=== PATIENT | female | born 1975 | race Caucasian/White ===

== ENCOUNTER 2017-10-29 10:23 | Emergency (ER) | payer OTHER ==
[2017-10-29] VITALS (9 sets, daily range): BP systolic 86–114; BP diastolic 47–75
[~2017-10-29] VITALS: Ht 160 cm; Wt 57.6 kg
[~2017-10-29 10:23] MED LIST: ASPIR 8181 MG PO; ATORVASTATIN CA40 MG PO; BRILINTA90 MG PO; CELEXA40 MG PO; COREG6.25 MG PO; IMDUR 30 MG TAB30 M1 PO; JANUMET 50-5001 EACH PO; JANUVIA50 MG PO; LOPRESSOR 12.12.5 MG PO; NITROGLYCERIN0.4 MG SUBLING; NORCO 5-325 TA1 EAC1 PO; PERCOCET 5-3251 EACH PO; PHENERGAN 25 MG25 M1 PO; PROTONIX 20 MG20 M1 PO; RANEXA500 MG PO; ULTRAM 50MG TAB50 MG PO; VICODIN 5-5001 EACH PO; XANAX 0.5 MG0.5 M1 PO; XANAX XR1 MG PO; ZOFRAN 4 MG ORAL4 MG PO; ZOFRAN ODT4 MG PO
[2017-10-29] MEDS ORDERED: ASPIRIN325 PO (10:30)
[2017-10-29] MEDS ORDERED: LISINOPRIL2.5 MG PO (10:32)
[2017-10-29] MEDS ORDERED: BRILINTA90 MG PO (10:33)
[2017-10-29 10:43] LABS: ABSOLUTE EOSINOPHILS 0.2 thou/uL (0.0-0.7); ABSOLUTE LYMPHOCYTES 2.1 thou/uL (0.8-5.3); ABSOLUTE MONOCYTES 0.5 thou/uL (0.0-1.2); ABSOLUTE NEUTROPHILS 2.5 thou/uL (1.6-8.1); BASOPHILS 0.9 %; EOSINOPHILS 3.1 %; HEMATOCRIT 40.9 % (37.0-47.0); HEMOGLOBIN 13.8 gm/dL (12.0-15.0); LYMPHOCYTES 39.6 %; MCH 32.4 pg (26.0-34.0); MCHC 33.7 g/dL (28.0-37.0); MCV 96.4 fL (80.0-100.0); MONOCYTES 9.8 %; MPV 8.4 fl. (7.2-11.1); NUCLEATED RBCS 0 /100WBC; PLATELET COUNT* 219 thou/uL (150-400); POLYS 46.6 %; RBC 4.24 mil/uL (4.20-5.00); RDW-CV 13.6 % (10.5-14.5); WBC 5.4 thou/uL (4.0-11.0)
[2017-10-29 10:51] LABS: ANION GAP 8 mmol/L (7-16); BUN 5 mg/dL (7-18); CALCIUM 8.8 mg/dL (8.5-10.1); CHLORIDE 102 mmol/L (98-107); CO2 30 mmol/L (21-32); CREATININE 0.8 mg/dL (0.6-1.3); GLUCOSE 181 mg/dL (70-99); POTASSIUM 3.8 mmol/L (3.5-5.1); SODIUM 140 mmol/L (136-145)
[2017-10-29 10:52] LABS: APTT 25.5 Seconds (25.0-31.3); PROTIME 9.6 Seconds (9.20-11.50)
[2017-10-29 10:54] LABS: CHOLESTEROL 139 mg/dL (<200); HDL CHOLESTEROL 70 mg/dL (>40); LDL CHOLESTEROL 31 mg/dL (<100); TRIGLYCERIDE 193 mg/dL (<150); VLDL 39 mg/dL (<40)
[2017-10-29 10:55] LABS: SERUM ASSESSMENT Clear
[2017-10-29 11:10] LABS: ALBUMIN 3.8 g/dL (3.4-5.0); ALKALINE PHOSPHATASE 103 U/L (46-116); CK-MB MASS < 0.5 ng/mL (<0.5-3.6); LIPASE 89 U/L (73-393); MAGNESIUM 1.5 mg/dL (1.8-2.4); NT-PRO BRAIN NAT PEPTIDE 130 pg/mL (<300); SGOT 29 U/L (15-37); SGPT 44 U/L (30-65); TOTAL BILIRUBIN 0.5 mg/dL (<0.1-1.0); TROPONIN-I LEVEL <0.06 ng/mL (<0.06)
--- NOTE | 2017-10-29 17:59 | EKG ---
[place] [address] ELECTROCARDIOGRAM REPORT Name: ZULEYKA COSBY Room: [address]R.#: [id number] Admission: 10/29/17 Attend Phys: Blayne Weaver MD, Discharge: Date of : 77 Report #: [id number] THIS REPORT FOR: //name// [facility] ED Test Date: 2017-10-29 Test Time: 10:29:27 Pat Name: ZULEYKA COSBY Department: Room: Gender: F Zoology Technical Officer: Melony FERNANDEZ : 1975 Requested By: Wagner Gil Order Number: [id number] MD: Blayne Weaver Measurements Intervals [place] Rate: 81 P: 48 [place]: 154 QRS: 7 QRSD: 107 T: 54 QT: 393 QTc: 457 Interpretive Statements Sinus rhythm Abnormal inferior Q waves Baseline wander in lead(s) V2 Compared to ECG 04/30/2017 10:02:17 Inferior Q waves now present Q waves now present Electronically Signed On 10-29-2017 17:59:38 CDT by Blayne Weaver [email or web address] <ELECTRONICALLY SIGNED> By: Blayne Weaver MD, [facility] 10/29/17 1759 1029 1029 Blayne Weaver MD, [facility] /EPI
--- NOTE | 2017-10-30 16:51 | CARD ---
[address] [address] CARDIAC CATH REPORT Name: ZULEYKA COSBY Room: [facility] ANNIE Turner#: [id number] Admission: 10/29/17 Attend Phys: Discharge: 10/29/17 Date of : [birth year] Report #: [id number] THIS REPORT FOR: //name// APPROVED REPORT Study performed: 10/29/2017 13:15:37 Patient Details Patient Status: ED Room #: The patient is a 42 year-old female Event Personnel Blayne Weaver Chili Powder Mixer, Amber Overton RN Toll Testboard Worker, Macarena Albarado Monitor, RickyMalathi faulkner RTR Scrub Procedures Performed Art Access - R radial artery , Left Heart Catheterization and selective coronary arteriography, FFR Indication Chest pain Risk Factors Family History, Hypercholesterolemia Previous Procedures/Diagnoses Previous PCI, Previous ID Procedure Narrative The patient was brought urgently to the Cardiac Catheterization Laboratory and was prepped and draped in a sterile manner. The right wrist was infiltrated with 1% Lidocaine subcutaneous anesthesia. A Randolph 6 FR sheath was inserted into the right radial artery. Coronary angiography was performed using coronary diagnostic catheters. The right coronary system was accessed and visualized with a JR4 5fr catheter. The left coronary system was accessed and visualized with a JL 3.5 5fr catheter. Left ventricular/Aortic Valve gradient assessed via catheter pullback. The patient tolerated the procedure well and there were no complications associated with the procedure. Intraoperative Conscious Sedation Sedation start time: 13:48 Case end Time: 14:49 Fentanyl 50 mcg Versed 3 [place] [address] CARDIAC CATH REPORT Name: ZULEYKA COSBY Room: [facility]#: [id number] Admission: 10/29/17 Attend Phys: Discharge: 10/29/17 Date of : 77 Report #: [id number] Fluoro Time: 9.7 minutes Dose: DAP 90110 cGycm2 748.42 mGy Contrast Type and Amount: Visipaque 115 ml Diagnostic Cath Left Main 0% narrowing LAD Widely patent proximal LAD stent with 50% mid vessel narrowing and 40% proximal narrowing of the first diagonal branch Circumflex Widely patent proximal stent with 0% narrowing of this dominant vessel Right Coronary Small nondominant vessel with 0% narrowing IVUS Fractional Flow [place] was performed on the mid left anterior descending artery segment vessel. A 6fr XB LAD 3.5 Guide Catheter was used to engage the LCA ostium. A FFR wire was used. IVUS Findings Minimum FFR related to the mid LAD lesion was 0.89, suggesting lack of hemodynamic significance after adenosine provocation Hemodynamics The aortic pressure is 104/59 mmHg with a mean of mmHg. The left ventricular pressure is 108/5 mmHg with a mean of mmHg. The left ventricular end diastolic pressure is 14 mmHg. There was no gradient across the aortic valve upon pullback. PCI Technique Lesion The lesion stenosis prior to intervention was mid left anterior descending artery segment% with ABEL 6fr XB LAD 3.5 flow. A LCA Guide Catheter was used to engage the ostium. A FFR wire Interventional Guidewire was used to cross the lesion. BALLOON DILATION A Balloon catheter Minimum FFR related to the mid LAD lesion was 0.89, suggesting lack of hemodynamic significance after adenosine provocation was inserted and inflated up to pascual for seconds. Conclusion #1 modest coronary disease characterized by the following: [place] [address] CARDIAC CATH REPORT Name: ZULEYKA COSBY [id number] Admission: 10/29/17 Attend Phys: Discharge: 10/29/17 Date of : 77 Report #: [id number] A widely patent proximal LAD stent with 50% mid LAD narrowing and 40% ostial first diagonal narrowing, B widely patent proximal circumflex stent, this being a dominant vessel, C 0% narrowing of the nondominant right coronary artery #2 FFR obtained related to the moderate mid LAD lesion with a minimum value 0.89, suggesting lack of hemodynamic significance #3 normal left-sided hemodynamics study Recommendations Cardiac Risk Reduction Program Aggressive Medical Therapy Diagnostic Cath Approved by: Blayne Weaver MD Date/Time: 10/30/17 at 1650 hrs. <ELECTRONICALLY SIGNED> By: Blayne Weaver MD, [facility] 10/30/171650 50 1651Joisael Weaver MD, FACC /INF
== END 2017-10-29 18:00 | disposition home or self-care (01) ==
LOC: M.CL 10:23 → M.ERS 10:23 → M.TBA-CV 13:20 → M.CL 13:20
PROVIDERS: Family Medicine
DX: I25.10 Atherosclerotic heart disease of native coronary artery without angina pectoris (principal); I10 Essential (primary) hypertension; E11.9 Type 2 diabetes mellitus without complications; I25.2 Old myocardial infarction; E78.00 Pure hypercholesterolemia, unspecified; K21.9 Gastro-esophageal reflux disease without esophagitis; F32.9 Major depressive disorder, single episode, unspecified; Z90.710 Acquired absence of both cervix and uterus; Z79.82 Long term (current) use of aspirin; Z90.49 Acquired absence of other specified parts of digestive tract; Z79.899 Other long term (current) drug therapy

== ENCOUNTER 2018-11-10 22:39 | Inpatient (IN) | payer OTHER ==
[~2018-11-10] VITALS: Ht 157.5 cm; Wt 56.2 kg
[~2018-11-10 22:39] MED LIST changes: +ASPIRIN325 PO; +LISINOPRIL2.5 MG PO
[2018-11-10 22:44] VITALS: BP 97/66
[2018-11-10] MEDS ORDERED: LEVEMIR (22:51)
[2018-11-10] MEDS ORDERED: ASPIR 8181 MG (22:52)
[2018-11-10 23:01] LABS: ABSOLUTE EOSINOPHILS 0.1 thou/uL (0.0-0.7); ABSOLUTE LYMPHOCYTES 1.8 thou/uL (0.8-5.3); ABSOLUTE MONOCYTES 0.4 thou/uL (0.0-1.2); ABSOLUTE NEUTROPHILS 1.7 thou/uL (1.6-8.1); BASOPHILS 1.1 %; EOSINOPHILS 2.1 %; HEMATOCRIT 41.2 % (37.0-47.0); HEMOGLOBIN 13.9 gm/dL (12.0-15.0); LYMPHOCYTES 44.7 %; MCH 31.4 pg (26.0-34.0); MCHC 33.6 g/dL (28.0-37.0); MCV 93.4 fL (80.0-100.0); MONOCYTES 9.6 %; MPV 9.1 fl. (7.2-11.1); NUCLEATED RBCS 0 /100WBC; PLATELET COUNT* 246 thou/uL (150-400); POLYS 42.5 %; RBC 4.41 mil/uL (4.20-5.00); RDW-CV 13.1 % (10.5-14.5); WBC 4.1 thou/uL (4.0-11.0)
[2018-11-10 23:15] LABS: APTT 25.9 Seconds (25.0-31.3); PROTIME 10.1 Seconds (9.20-11.50)
[2018-11-10 23:23] LABS: ANION GAP 13 mmol/L (7-16); BUN 9 mg/dL (7-18); CALCIUM 8.7 mg/dL (8.5-10.1); CHLORIDE 89 mmol/L (98-107); CO2 25 mmol/L (21-32); CREATININE 1.1 mg/dL (0.6-1.3); SODIUM 127 mmol/L (136-145); TROPONIN-I LEVEL <0.06 ng/mL (<0.06)
[2018-11-10 23:27] LABS: ALBUMIN 3.6 g/dL (3.4-5.0); ALKALINE PHOSPHATASE 112 U/L (46-116); CK-MB MASS < 0.5 ng/mL (<0.5-3.6); LIPASE 324 U/L (73-393); MAGNESIUM 1.4 mg/dL (1.8-2.4); NT-PRO BRAIN NAT PEPTIDE 202 pg/mL (<300); SGOT 10 U/L (15-37); SGPT 20 U/L (30-65); TOTAL BILIRUBIN 0.4 mg/dL (<0.1-1.0); TOTAL PROTEIN 6.9 g/dL (6.4-8.2)
[2018-11-10 23:31] LABS: GLUCOSE 747 mg/dL (70-99)
[2018-11-11] VITALS (18 sets, daily range): BP systolic 74–106; BP diastolic 30–80
[2018-11-11] LABS: BE 0.2 mmol/L (-2 to +3); PCO2 VENOUS 48.7 mmHg (41.0-51.0)
[2018-11-11 00:01] LABS: PO2 VENOUS 26.2 mmHg (35.0-45.0)
--- NOTE | 2018-11-11 09:01 | EKG ---
[place] [address] ELECTROCARDIOGRAM REPORT Name: ZULEYKA COSBY Room: [address] ADM IN .R.#: [id number] Admission: 11/10/18 Attend Phys: Estuardo Lazcano MD Discharge: Date of : 77 Report #: [id number] THIS REPORT FOR: //name// [facility] ED Test Date: 2018-11-10 Test Time: 22:52:50 Pat Name: ZULEYKA COSBY Department: Room: [facility] Gender: F Prop Cutter: Melony KELLOGG : 1975 Requested By: Wagner Gil Order Number: [id number] MD: Jeff Ayoub Measurements Intervals [place] Rate: 91 P: 64 [place]: 169 QRS: 4 QRSD: 103 T: 82 QT: 365 QTc: 450 Interpretive Statements Sinus rhythm Probable inferior infarct, old Compared to ECG 10/29/2017 10:29:27 no change Electronically Signed On 11-11-2018 9:00:50 CDT by Jeff Ayoub [email or web address] <ELECTRONICALLY SIGNED> By: Jeff Ayoub MD, [facility] 11/11/18 0900 51 51 Jeff Ayoub MD, [facility] /EPI
--- NOTE | 2018-11-11 16:50 | CARD ---
[address] [address] CARDIAC CATH REPORT Name: ZULEYKA COSBY Room: [address] IN .R.#: [id number] Admission: 11/10/18 Attend Phys: Estuardo Lazcano MD Discharge: Date of : 77 Report #: [id number] THIS REPORT FOR: //name// ADDENDUM APPROVED REPORT Study performed: 11/11/2018 13:26:27 Patient Details Patient Status: In-Patient Room #: 205 The patient is a 43 year-old female Event Personnel Jeff Ayoub Spiral Tube Winder, Rossy Zamudio RN RN, Maykel Isaac (R) Jimi Gamboa Brad PARTY PLANNER Monitor Procedures Performed Art Access - R femoral artery* , Left Heart Catheterization Indication Chest pain Risk Factors Diabetes Previous Procedures/Diagnoses Previous PCI, Previous IA Procedure Narrative The patient was brought electively to the Cardiac Catheterization Laboratory and was prepped and draped in a sterile manner. The right femoral was infiltrated with 1% Lidocaine subcutaneous anesthesia. A ultimum 6fr sheath was inserted into the right femoral artery. Coronary angiography was performed using coronary diagnostic catheters. The right coronary system was accessed and visualized with a JR4 6fr catheter. The left coronary system was accessed and visualized with a JL4 6fr catheter. The left ventricle was accessed and visualized with a pigtail 6fr catheter. Left ventricular/Aortic Valve gradient assessed via catheter pullback. Left ventriculogram was performed in YUNG projection. Hemostasis was obtained with manual pressure following sheath removal without any complications. The patient tolerated the procedure well and there were no complications associated with the procedure. There was no hematoma. Intraoperative Conscious Sedation [address] [address] CARDIAC CATH REPORT Name: ZULEYKA COSBY Room: [address]#: [id number] Admission: 11/10/18 Attend Phys: Estuardo Lazcano MD Discharge: Date of : 77 Report #: [id number] Sedation start time: 1418 Case end Time: 1442 Fentanyl 75 mcg Versed 3 mg Fluoro Time: 1.5 minutes Dose: DAP 69276 cGycm2 308 mGy Contrast Type and Amount: Omnipaque 140 ml Coronary Angiography The patient's coronary anatomy is left dominant. Diagnostic Cath Left Main 0% stenosis LAD ostial stent had 0% restenosis Circumflex proximal stent had 0% restenosis Right Coronary 0% stenosis Left Ventriculography The left ventricular ejection fraction is estimated to be 40-45%. Left ventricular wall motion abnormalities are present. There is 1+ mitral insufficiency. mild inferior wall hypokinesis noted Hemodynamics The aortic pressure is 131/71 mmHg with a mean of 96 mmHg. The left ventricular pressure is 141/120 mmHg with a mean of mmHg. The left ventricular end diastolic pressure is 28 mmHg. There was no gradient across the aortic valve upon pullback. Pullback from the left ventricle to the aorta revealed no gradient across the aortic valve. Conclusion 1. no restenosis noted of stents in the proximal lad and circumflex 2. LVEF 40-45% Recommendations Aggressive Medical Therapy <ELECTRONICALLY SIGNED> By: Jeff Ayoub MD, [facility] 11/11/181648 48 48Davinancy Ayoub MD, FACC /INF
[2018-11-12] VITALS: BP 96/50
[2018-11-12 04:00] VITALS: BP 123/69
[2018-11-12 08:00] VITALS: BP 102/56
[2018-11-12 11:13] VITALS: BP 102/56
[2018-11-12 11:46] VITALS: BP 102/56
[2018-11-12 12:00] VITALS: BP 212/76
--- NOTE | 2018-11-12 14:09 | CON ---
[address] [address] CONSULTATION Name: ZULEYKA COSBY Room: [address] IN ..#: [id number] Admission: 11/10/18 Attend Phys: Estuardo Lazcano MD Discharge: 11/12/18 Date of : 77 Report #: [id number] THIS REPORT FOR: //name// CC: Estuardo Ryan MD DATE OF SERVICE: 11/11/2018 TYPE OF REPORT: Cardiology consultation. 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 The patient has an extensive past medical history. She has a history of glucose intolerance and hyperlipidemia. Fortunately, she quit smoking a couple of years ago. She actually states that [place] and had chest pain. She went to [facility] in the [facility] and had a coronary stent placed in May 2015. In November 2015, she was admitted here to [place] and Dr. Weaver performed a cardiac catheterization. Results showed 90% ostial narrowing of the LAD with thrombus. Circumflex had a stent that is widely patent. Dr. Weaver then placed a drug-eluting stent in the ostium of the LAD. Right coronary artery appeared normal. She tolerated the procedure well. She was actually admitted 2 months later in January with recurrent chest pain. Dr. Weaver performed another cardiac catheterization. This showed normal left ventricular function. The stent was widely patent. The circumflex stent was widely patent. The right coronary artery was nondominant. It was felt the chest pain was noncardiac. She was last seen by Dr. Weaver a year ago. She was doing well until yesterday. She felt a pressure in her arm. She felt nauseated and vomited. She came to the hospital. Today, she has had intermittent pressure in her chest. Denied any diaphoresis. She has had no significant shortness of breath. PAST MEDICAL HISTORY: Significant for cholecystectomy, hysterectomy, glucose intolerance and hyperlipidemia. MEDICATIONS: Consist of Xanax, aspirin, Lipitor, carvedilol, Celexa, Imdur, Prinivil and Protonix. ALLERGIES: She has intolerance to HYDROCODONE. FAMILY HISTORY: Positive for heart disease. SOCIAL HISTORY: She is . She and her live in [place], [place]. She works as a nurse at [employer]. Quit smoking in 2014[place] [address] CONSULTATION Name: HARJEETZULEYKA Lucía Room: [address]#: [id number] Admission: 11/10/18 Attend Phys: Estuardo Lazcano MD Discharge: 11/12/18 Date of : 77 Report #: [id number] REVIEW OF SYSTEMS: He has had no history of stroke or asthma. She has had a peptic ulcer disease. She has had a kidney stone. No cancer. No chronic skin condition. No psychiatric illness. PHYSICAL EXAMINATION: GENERAL: Revealed a middle-aged female lying in bed. She appeared in no distress. VITAL SIGNS: She had a blood pressure of only 100/80, pulse is 80 and she is afebrile. HEENT: She was anicteric. Conjunctivae pink. Mucous members moist. NECK: Veins do not appear distended. No carotid bruits. Neck supple. CHEST: Clear to auscultation. CARDIAC: Regular rate and rhythm. No murmur. ABDOMEN: Soft. EXTREMITIES: Had no edema. Dorsalis pedis pulse cannot be palpated. SKIN: Cool and dry. NEUROLOGICAL: Nonfocal. RADIOLOGICAL DATA: Her ECG done in the Emergency Room showed a sinus rhythm. There was no significant ST or T-wave change noted. LABORATORY DATA: Sodium 142, creatinine 1.1 and glucose 747. Liver function studies were normal. Troponins were all 0.06. LDL a year ago was only 31. Her white blood cell count is 4.1 and hemoglobin 13.9. IMPRESSION AND RECOMMENDATIONS: 1. Left arm pain. Reason unclear. 2. Chest pressure. No acute myocardial ischemia. Recommend nuclear stress test. 3. Previous tobacco abuse. 4. History of hyperlipidemia. The patient is on a statin drug. <ELECTRONICALLY SIGNED> By: Jeff Ayoub MD, FACC 11/12/18 1409 1311 2352Deli Ayoub MD, FACC /nt
== END 2018-11-12 12:05 | disposition home or self-care (01) | DRG 287 ==
LOC: M.ERS 22:39 → M.2W 23:37 → M.TBA-ER 23:37 → M.2W 11-11 00:30
PROVIDERS: Family Medicine; ADMIT Internal Medicine
PROC: B2151ZZ Fluoroscopy of Left Heart using Low Osmolar Contrast (ICD-10-PCS; principal; 2018-11-11)
PROC: B2111ZZ Fluoroscopy of Multiple Coronary Arteries using Low Osmolar Contrast (ICD-10-PCS; principal; 2018-11-11)
PROC: 4A023N7 Measurement of Cardiac Sampling and Pressure, Left Heart, Percutaneous Approach (ICD-10-PCS; principal; 2018-11-11)
DX: R07.9 Chest pain, unspecified (principal); E87.1 Hypo-osmolality and hyponatremia; E11.65 Type 2 diabetes mellitus with hyperglycemia; E78.5 Hyperlipidemia, unspecified; M25.512 Pain in left shoulder; I25.10 Atherosclerotic heart disease of native coronary artery without angina pectoris; I25.2 Old myocardial infarction; Z95.5 Presence of coronary angioplasty implant and graft; Z87.891 Personal history of nicotine dependence; Z90.49 Acquired absence of other specified parts of digestive tract; Z90.710 Acquired absence of both cervix and uterus; Z79.4 Long term (current) use of insulin; Z79.82 Long term (current) use of aspirin; Z79.899 Other long term (current) drug therapy; Z88.8 Allergy status to other drugs, medicaments and biological substances; Z82.49 Family history of ischemic heart disease and other diseases of the circulatory system; Z83.3 Family history of diabetes mellitus

== ENCOUNTER 2020-01-25 14:03 | Emergency (ER) | payer OTHER ==
[~2020-01-25] VITALS: Ht 160 cm; Wt 59.0 kg
--- NOTE | ~2020-01-25 | EMS ---
[place] [address] EMS Patient Care Report Name: ZULEYKA COSBY [facility] [id number] Admission: 01/25/20 Attend Phys: Discharge: 01/25/20 Date of : [birth year] Report #: [id number] THIS REPORT FOR: //name// Report Transmitted: 01/25/2020 20:45 EMS Care Summary [facility]ident [id number] @ 01/25/2020 13:13 Incident Location [address] [place] [address] Patient ZULEYKA COSBY Female, 44 Years 1975 Patient Address [address] [place] [address] Patient History Diabetes,Myocardial Infarction (IA), Patient Allergies No known allergies, Patient Medications Insulin, Xanax, Atorvastatin, Novolog, Celexa, Carvedilol, Lisinopril, Zofran, Nitroglycerin, Aspirin, Chief Complaint Nausea/Sickness Disposition Transported No Lights/[place] Dispatch Reason Sick Person Transported To [facility] Narrative Dispatched: Med 1 received a walk in patient with possible hypotension and general sickness. Chief Complaint/Condition: The [place] [address] EMS Patient Care Report Name: ZULEYKA COSBY Room: [facility]#: [id number] Admission: 01/25/20 Attend Phys: Discharge: 01/25/20 Date of : 77 Report #: [id number] assistance of another person (unknown relation). She appeared generally weak and with unsteady gait. She reported nausea and general sickness. History of Present Illness/Injury: The patient stated that she had been admitted to [facility] last week for a few days due to DKA (her insulin pump had failed and she could not get her blood sugar under control). Since that event she has not felt "well." She stated that last evening she felt like she, "ate something that was bad." The patient had vomited regularly since then and was unable to keep food or water down. The vomiting ceased around 5am. The weakness increased and she had an individual take her to the EMS station for further evaluation. Assessment: The patient was a female in her 40's, A/Ox4, GCS 15. Airway patent, breathing clear, equal, and regular. CMS present x4 with radial pulses present. Skin pale and mottled. See section for further. Reason for Ambulance: The patient requested transport to [place] for further treatment and assessment. Treatments: EKG/12 lead showing sinus tachycardia. IV therapy attempted by student and provider without success. Oral zofran administered by student successfully. See section for further. Summary: Med 1 received a walk in patient at the station. Assessment performed and the crew assisted the patient to the stretcher. She was secured and brought into the ambulance where treatment and transport were initiated. The patient's status was monitored en route with no change in condition noted. The patient requested change in destination while en route. Report called to [place] by student with no further orders. The patient was delivered into the ED upon arrival and sheet transferred to the bed. Report given to staff and signatures obtained. Med 1 gathered paperwork and returned. Initial Vitals @13:52P: 113,R: 16,BP: 135/96,GCS: 15,SpO2: 96,Revised Trauma: 12, @13:40P: 120,R: 18,BP: 112/73,GCS: 15,Revised Trauma: 12, @13:17P: 119,R: 20,BP: 98/60,GCS: 15,Temp: 98F,Glucose: 245,SpO2: 99,Revised Trauma: 12, @13:47P: 112,R: 16,BP: 113/74,GCS: 15,SpO2: 95,Revised Trauma: 12, @13:29P: 122,R: 18,GCS: 15, @13:37P: 115,R: 16,BP: 134/110,GCS: 15,SpO2: 99,Revised Trauma: 12, Assessments @13:13MENTAL:Person Oriented,Time Oriented,Place Oriented,Event Oriented,SKIN:Pale,Mottled,HEENT:LUNG SOUNDS:General: Nausea,ABDOMEN:General: Nausea,PELVIS//GI:EXTREMITIES:PULSE:Radial: 2+ Normal,NEURO:Abnormal Gait,@13:45MENTAL:Time Oriented,Event Oriented,Place Oriented,[place] [address] EMS Patient Care Report Name: ZULEYKA COSBY [id number] Admission: 01/25/20 Attend Phys: Discharge: 01/25/20 Date of : 77 Report #: [id number] Oriented,SKIN:Pale,Mottled,HEENT:LUNG SOUNDS:General: Nausea,ABDOMEN:General: Nausea,PELVIS//GI:EXTREMITIES:PULSE:Radial: 2+ Normal,NEURO: Impression Generalized Weakness Procedures @13:38Zofran - 4 Milligrams (mg) - OralResponse: Improved@13:35Saline Lock 5cc (20 ga) Site: Hand-RightResponse: UnchangedFailed@13:25Saline Lock 2cc (20 ga) Site: Antecubital-LeftResponse: UnchangedFailed@13:13ALS AssessmentResponse: UnchangedSucceeded@13:2912-Lead ECGResponse: UnchangedSucceeded Timeline 13:13,At Patient 13:13,Call Received 13:13,Dispatched 13:13,En Route 13:13,On Scene 13:13,ALS Assessment,Response: UnchangedSucceeded, 13:17,BP: 98/60 M,PULSE: 119,RR: 20 R,SPO2: 99 Ox,ETCO2: ,B,PAIN: ,GCS: 15, 13:21,Depart Scene 13:25,Saline Lock 2cc 20 ga Site: Antecubital-Left,Response: UnchangedFailed, 13:29,12-Lead ECG,Response: UnchangedSucceeded, 13:29,BP: / M,PULSE: 122,RR: 18 R,SPO2: Ox,ETCO2: ,BG: ,PAIN: ,GCS: 15, 13:35,Saline Lock 5cc 20 ga Site: Hand-Right,Response: UnchangedFailed, 13:37,BP: 134/110 M,PULSE: 115,RR: 16 R,SPO2: 99 Ox,ETCO2: ,BG: ,PAIN: ,GCS: 15, 13:38,Zofran - 4 Milligrams (mg) - Oral,Response: Improved 13:40,BP: 112/73 M,PULSE: 120,RR: 18 R,SPO2: Ox,ETCO2: ,BG: ,PAIN: ,GCS: 15, 13:47,BP: 113/74 M,PULSE: 112,RR: 16 R,SPO2: 95 Ox,ETCO2: ,BG: ,PAIN: ,GCS: 15, 13:52,BP: 135/96 M,PULSE: 113,RR: 16 R,SPO2: 96 Ox,ETCO2: ,BG: ,PAIN: ,GCS: 15, 14:01,At Destination 14:52,Call Closed Disclaimer v1.1 Copyright 2020 [employer] This EMS Care Summary contains data elements from the applicable legal record (which may be displayed differently). It is designed to provide pertinent information for the following purposes: continuity of care, clinical quality, and state data reporting. The complete legal record is available to ED staff and administrators of the receiving hospital in [employer]'s Patient Tracker. All data is provided "as is."
[~2020-01-25 14:03] MED LIST changes: +ASPIR 8181 MG; +LEVEMIR
[2020-01-25] MEDS ORDERED: NITROGLYCERIN0.3 M1 (14:13)
[2020-01-25] MEDS ORDERED: WOMEN MULTIVIT1 EACH PO (14:13)
[2020-01-25] MEDS ORDERED: NOVOLOG100 UNIT/M SUBQ (14:14)
[2020-01-25 14:43] LABS: ABSOLUTE LYMPHOCYTES 2.5 thou/uL (0.8-5.3); ABSOLUTE MONOCYTES 0.6 thou/uL (0.0-1.2); BASOPHILS 0.7 %; EOSINOPHILS 0.7 %; HEMATOCRIT 42.3 % (37.0-47.0); LYMPHOCYTES 40.7 %; MCH 31.7 pg (26.0-34.0); MCHC 35.4 g/dL (28.0-37.0); MCV 89.5 fL (80.0-100.0); MONOCYTES 9.1 %; MPV 8.7 fl. (7.2-11.1); NUCLEATED RBCS 0 /100WBC; PLATELET COUNT* 358 thou/uL (150-400); POLYS 48.8 %; RBC 4.73 mil/uL (4.20-5.00); RDW-CV 13.3 % (10.5-14.5); WBC 6.1 thou/uL (4.0-11.0)
[2020-01-25 14:44] LABS: PCO2 VENOUS 46.2 mmHg (41.0-51.0); PO2 VENOUS 57.2 mmHg (35.0-45.0)
[2020-01-25 14:57] LABS: APTT 25.5 Seconds (25.0-31.3); INR 1.1; PROTIME 11.3 Seconds (9.20-11.50)
[2020-01-25 15:13] LABS: CALCIUM 8.8 mg/dL (8.5-10.1); CREATININE 0.9 mg/dL (0.6-1.3); POTASSIUM 3.9 mmol/L (3.5-5.1)
[2020-01-25 15:20] LABS: TOTAL BILIRUBIN 1.1 mg/dL (<0.1-1.0); TOTAL PROTEIN 7.9 g/dL (6.4-8.2)
[2020-01-25 16:04] VITALS: BP 116/63
--- NOTE | 2020-01-26 17:02 | EKG ---
[place] [address] ELECTROCARDIOGRAM REPORT Name: ZULEYKA COSBY Room: [facility]#: [id number] Admission: 01/25/20 Attend Phys: Discharge: 01/25/20 Date of : 77 Date of Service: 01/25/20 1410 Report #: [id number] THIS REPORT FOR: //name// [facility] ED Test Date: 2020-01-25 Test Time: 14:10:05 Pat Name: ZULEYKA COSBY Department: Room: Gender: F Computer Networker: CCD : 1975 Requested By: Wagner Gil Order Number: [id number] MD: Blayne Weaver Measurements Intervals [place] Rate: 112 P: 66 [place]: 127 QRS: 17 QRSD: 107 T: 103 QT: 346 QTc: 473 Interpretive Statements Sinus tachycardia Nonspecific T abnormalities, lateral leads Compared to ECG 11/10/2018 22:52:50 T-wave abnormality now present Sinus rate has increased small inferior Q's persist Electronically Signed On 01-26-2020 17:01:44 CDT by Blayne Weaver [email or web address] <ELECTRONICALLY SIGNED> By: Blayne Weaver MD, [facility] 01/26/20 1701 1410 1410 Blayne Weaver MD, [facility] /EPI
== END 2020-01-25 16:05 | disposition home or self-care (01) ==
LOC: M.ERS 14:03
PROVIDERS: Family Medicine
DX: E11.65 Type 2 diabetes mellitus with hyperglycemia (principal); I25.2 Old myocardial infarction; D68.52 Prothrombin gene mutation; Z87.891 Personal history of nicotine dependence; Z90.710 Acquired absence of both cervix and uterus